=== PATIENT | male | born 2000 ===

== ENCOUNTER 2023-11-07 00:17 | Emergency (ER) | payer SELFPAY ==
[~2023-11-07] VITALS: Ht 175.3 cm; Wt 83.9 kg
[2023-11-07] MEDS ORDERED: BENADRYL25 MG PO (06:14)
[2023-11-07] MEDS ORDERED: Prednisone20 MG PO (06:14)
[2023-11-07] MEDS ORDERED: CORTISONE60 GM TOP (06:14)
== END 2023-11-07 06:24 | disposition home or self-care (01) ==
LOC: ER 00:17
DX: L23.7 Allergic contact dermatitis due to plants, except food (principal)
CPT/HCPCS: 99282